=== PATIENT | male | born 1965 | race American Indian/Alaskan Native ===

== ENCOUNTER 2019-12-24 02:52 | Inpatient (IN) | payer BC, MEDICARE ==
[~2019-12-24] VITALS: Ht 185.4 cm; Wt 92.5 kg
[2019-12-24] VITALS (17 sets, daily range): BP systolic 119–175; BP diastolic 50–78
[2019-12-24] MEDS ORDERED: ASPI-1264 PO (03:10)
[2019-12-24] MEDS ORDERED: CALC0.5C2 PO (03:10)
[2019-12-24] MEDS ORDERED: OLME40TA13 PO (03:10)
[2019-12-24] MEDS ORDERED: OMEG1CAP2 PO (03:11)
[2019-12-24] MEDS ORDERED: PANT-47 PO (03:24)
[2019-12-24] MEDS ORDERED: XAL0.005OS OP (03:24)
[2019-12-24] MEDS ORDERED: [UNRECOGNIZED DRUG - CODE] INJ (03:24)
[2019-12-24] MEDS ORDERED: GEMF600T89 PO (03:24)
[2019-12-24] MEDS ORDERED: FAMO-128 PO (03:24)
[2019-12-24] MEDS ORDERED: PRED5TAB PO (03:24)
[2019-12-24] MEDS ORDERED: IRON100V6 IV (03:24)
[2019-12-24] MEDS ORDERED: HYDR-4353 PO (03:24)
[2019-12-24] MEDS ORDERED: MULT-1085 PO (03:24)
[2019-12-24] MEDS ORDERED: EZET10TA6 PO (03:24)
[2019-12-24] MEDS ORDERED: CALC500T11 PO (03:24)
[2019-12-24] MEDS ORDERED: INSU100V9 SQ (03:24)
[2019-12-24] MEDS ORDERED: MYCO360T PO (03:24)
[2019-12-24] MEDS ORDERED: INSU100V11 SQ (03:24)
[2019-12-24] MEDS ORDERED: INDLA60C PO (03:24)
[2019-12-24] MEDS ORDERED: CLOP75TA15 PO (03:24)
[2019-12-24] MEDS ORDERED: piperacillin/tazo 3.375gm/50ml 50 ML IV ONE (03:35)
[2019-12-24] MEDS ORDERED: glucagon, human recombinant 1mg kit SUBCUT PRN (04:30)
[2019-12-24] MEDS ORDERED: HYDROmorphone inj. 0.5 MG/0.5 ML DISP.SYRIN IV PRN (04:30)
[2019-12-24] MEDS ORDERED: dextrose 50%-water 50ml dispensing syringe IV PRN ×2 (04:30)
[2019-12-24] MEDS ORDERED: ondansetron/PF 4mg/2ml inj IV PRN ×2 (04:30→08:40)
[2019-12-24] MEDS ORDERED: MESSAGE TO PHARMACY PO ONE (04:30)
[2019-12-24] MEDS ORDERED: acetaminophen 325mg tablet PO PRN ×2 (04:30)
[2019-12-24] MEDS ORDERED: dextrose ORAL solution 15 GM/59 ML bottle PO PRN ×2 (04:30)
[2019-12-24] MEDS ORDERED: VANCOmycin 1250MG/NS 250ml Bag 250 ML IV ONE (05:05)
[2019-12-24 05:19] LABS: BASOPHILS % (AUTO) 0.5 % (0-1); EOSINOPHILS % (AUTO) 0.5 % (0-6); HEMATOCRIT 23.6 % (42.0-52.0); LYMPHOCYTES % (AUTO) 12.7 % (21-51); MEAN CORPUSCULAR HGB CONC 33.7 g/dL (33.0-36.5); MEAN PLATELET VOLUME 5.9 FL (7.4-10.4); MONOCYTES # (AUTO) 0.6 X10'3 (0-0.9); MONOCYTES % (AUTO) 8.1 % (2-12); NEUTROPHILS % (AUTO) 78.2 % (42-75); PLATELET COUNT 360 X10'3 (140-440); RED BLOOD COUNT 2.74 X10'6 (4.70-6.10); RED CELL DISTRIBUTION WIDTH 13.7 % (11.5-14.5); WHITE BLOOD COUNT 7.7 X10'3 (4.5-11.0)
[2019-12-24 05:31] LABS: PARTIAL THROMBOPLASTIN TIME 31 SECONDS (22-32)
[2019-12-24 05:35] LABS: ALANINE AMINOTRANSFERASE 10 U/L (12-78); ALBUMIN 2.8 G/DL (3.4-5.0); ALBUMIN/GLOBULIN RATIO 0.7 (1.1-1.5); ALKALINE PHOSPHATASE 108 IU/L (46-116); ANION GAP 9 (8-16); ASPARTATE AMINO TRANSFERASE 9 U/L (10-37); BILIRUBIN,TOTAL 0.5 MG/DL (0.1-1.0); BLOOD UREA NITROGEN 38 MG/DL (7-18); BUN/CREATININE RATIO 5.9 (5.4-32.0); CHLORIDE 94 MMOL/L (99-107); GLUCOSE 215 MG/DL (70-104); MAGNESIUM 1.9 MG/DL (1.5-2.4); POTASSIUM 3.3 MMOL/L (3.5-5.1); SODIUM 135 MMOL/L (135-145); TOTAL CARBON DIOXIDE 31.8 MMOL/L (24-32); eGFR 9 ML/MIN
[2019-12-24 05:39] LABS: HEMOGLOBIN A1C 6.4 % (4.5-6.2)
[2019-12-24] MEDS ORDERED: IRON SUCROSE IV SCH (06:00)
[2019-12-24] MEDS ORDERED: HYDROcodone/acetaminophen 10/325mg tab PO PRN (06:00)
[2019-12-24] MEDS ORDERED: [UNRECOGNIZED DRUG - OTHER] INJ SCH (06:00)
--- NOTE | 2019-12-24 07:15 | NUR ---
received report from yenifer valdez
[2019-12-24] MEDS: docusate sod 100mg capsule PO SCH ×2 (08:00→20:00)
[2019-12-24] MEDS: clindamycin-Cleocin 900mg/D5W 50 ML IV SCH ×2 (08:00→16:16)
[2019-12-24] MEDS: calcium carbonate 500mg chew tablet PO SCH ×2 (08:06→16:00)
[2019-12-24] MEDS: calcitriol 0.25mcg capsule PO SCH ×3 (08:08→21:13)
[2019-12-24] MEDS: ezetimibe 10mg tablet PO SCH (08:08)
[2019-12-24] MEDS: pantoprazole 40mg Tablet.DR PO SCH (08:09)
[2019-12-24] MEDS: folic acid/vitamin B complex w/vitamin C 0.8mg tablet PO SCH (08:09)
[2019-12-24] MEDS: gemfibrozil 600mg tablet PO SCH ×2 (08:09→21:14)
[2019-12-24] MEDS: predniSONE 5mg tablet PO SCH (08:10)
[2019-12-24] MEDS: losartan 50mg tablet PO SCH (08:10)
[2019-12-24] MEDS: famotidine 20mg tablet PO SCH (08:10)
[2019-12-24] MEDS ORDERED: ringers solution, lacted 1,000 ML IV SCH (08:39)
[2019-12-24] MEDS ORDERED: proCHLORperazine 10 MG/2 ml inj IV PRN (08:40)
[2019-12-24] MEDS ORDERED: morphine 2 MG/ML inj. syringe IV PRN (08:40)
[2019-12-24] MEDS ORDERED: morphine 4 MG/ML inj SYRINge IV PRN (08:40)
[2019-12-24] MEDS ORDERED: meperidine/PF 25mg/ml syringe IV PRN ×3 (08:40)
[2019-12-24] MEDS: latanoprost 0.005% 2.5ml ophthalmic drops EACHEYE SCH ×2 (08:56→21:14)
[2019-12-24] MEDS: mycophenolate sod SR tablet 180 MG TABLET.DR PO SCH ×2 (08:57→21:14)
[2019-12-24] MEDS: propranolol LA 60 MG cap.SA.24H PO SCH (09:01)
[2019-12-24] MEDS ORDERED: desflurane 240ml liquid inh. IH ONE (09:27)
[2019-12-24] MEDS ORDERED: BUPIVAcaine/PF 2.5 mg/ml (0.25%) 30ml vial ONE (09:33)
[2019-12-24] MEDS ORDERED: fentaNYL/PF 50MCG/1 ML 2ML syringe ONE (09:35)
[2019-12-24] MEDS ORDERED: midazolam 2 mg/2 ml injection ONE (09:35)
[2019-12-24] MEDS ORDERED: propofol inj 20 ML IV ONE (09:37)
[2019-12-24] MEDS ORDERED: LIDOcaine 2% (20mg/ml) 5ml vial ONE (09:37)
--- NOTE | 2019-12-24 09:42 | NUR ---
between the hours of 0703 and 0900 there were no iv pumps available to use for pt iv abx, therefore pt did not receive his 0800 abx
--- NOTE | 2019-12-24 10:24 | NUR ---
ARRIVED IN PACU VIA BED FROM OR WITH O2 ON AND DR FERMIN IN ATTENDANCE. REPORT RECEIVED. PT SLEEPY BUT AROUSABLE. VS STABLE
[2019-12-24] MEDS ORDERED: insulin regular, human U-100 3ml vial - multi-dose SQ ONE (10:35)
--- NOTE | 2019-12-24 10:54 | NUR ---
SLEEPING. VS STABLE
--- NOTE | 2019-12-24 11:01 | NUR ---
RECEIVED REPORT FROM PIYUSH HOWARD
--- NOTE | 2019-12-24 11:14 | NUR ---
TO FLOOR WITH ASSISTANCE OF RN FROM [facility]. VS STABLE ON ARRIVAL. NO C/O PAIN
--- NOTE | 2019-12-24 11:45 | NUR ---
pt bg is 219 in or, or nurse gave pt 7 units of reg insulin for his bg, continue to monitor
--- NOTE | 2019-12-24 13:00 | NUR ---
AWARE OF PT K LEVEL, NO NEW ORDERS AT THIS TIME
[2019-12-24] MEDS: insulin Lispro (HumaLOG) vial - multi-dose SQ SCH ×2 (13:16→19:31)
[2019-12-24] MEDS: piperacillin/tazo 3.375gm/50ml 50 ML IV SCH (14:50)
--- NOTE | 2019-12-24 14:55 | NUR ---
per kassidy sandoval, she knows pt is diabetic but does not want pt to be on a diabetic diet only a renal diet regardless of blood sugar, if applies please treat pt blood glucose
--- NOTE | 2019-12-24 18:18 | NUR ---
gave report to yenifer yo
[2019-12-24] MEDS: OMEGA-3/DHA/EPA/FISH OIL 1 EACH CAPSULE.DR PO SCH (21:13)
[2019-12-24] MEDS: insulin glargine (Lantus) pen - multi-dose SQ SCH (21:22)
--- NOTE | 2019-12-24 21:28 | NUR ---
HOLDING TUMS 0000 DOSE IN PT SPECIFIC BIN.
[2019-12-25] MEDS: clindamycin-Cleocin 900mg/D5W 50 ML IV SCH ×2 (00:18→07:49)
[2019-12-25] MEDS: calcium carbonate 500mg chew tablet PO SCH ×4 (00:18→23:13)
[2019-12-25 02:00] VITALS: BP 141/60
[2019-12-25] MEDS: VANCOMYCIN LEVEL IV SCH (02:12)
[2019-12-25] MEDS: piperacillin/tazo 3.375gm/50ml 50 ML IV SCH ×2 (06:07→15:20)
[2019-12-25 06:17] LABS: BASOPHILS % (AUTO) 0.6 % (0-1); EOSINOPHILS # (AUTO) 0.1 X10'3 (0-0.9); EOSINOPHILS % (AUTO) 1.2 % (0-6); HEMATOCRIT 22.7 % (42.0-52.0); HEMOGLOBIN 7.7 g/dl (14.0-17.9); LYMPHOCYTES # (AUTO) 1.2 X10'3 (1.1-4.8); LYMPHOCYTES % (AUTO) 23.1 % (21-51); MEAN CORPUSCULAR HEMOGLOBIN 29.1 PG (27.0-31.0); MEAN CORPUSCULAR HGB CONC 33.8 g/dL (33.0-36.5); MEAN CORPUSCULAR VOLUME 86.1 FL (78-98); MONOCYTES # (AUTO) 0.7 X10'3 (0-0.9); NEUTROPHILS # (AUTO) 3.1 X10'3 (1.8-7.7); NEUTROPHILS % (AUTO) 62.1 % (42-75); PLATELET COUNT 336 X10'3 (140-440); RED BLOOD COUNT 2.64 X10'6 (4.70-6.10); RED CELL DISTRIBUTION WIDTH 13.6 % (11.5-14.5); WHITE BLOOD COUNT 5.1 X10'3 (4.5-11.0)
--- NOTE | 2019-12-25 06:28 | NUR ---
Received report from Mariela PICKETT
[2019-12-25 06:32] LABS: PARTIAL THROMBOPLASTIN TIME 26 SECONDS (22-32)
--- NOTE | 2019-12-25 06:39 | NUR ---
REPORT GIVEN TO PIYUSH DIAZ.
[2019-12-25 06:45] LABS: ALANINE AMINOTRANSFERASE 10 U/L (12-78); ALBUMIN 2.5 G/DL (3.4-5.0); ALBUMIN/GLOBULIN RATIO 0.6 (1.1-1.5); ALKALINE PHOSPHATASE 92 IU/L (46-116); ANION GAP 13 (8-16); ASPARTATE AMINO TRANSFERASE 7 U/L (10-37); BILIRUBIN,TOTAL 0.5 MG/DL (0.1-1.0); BLOOD UREA NITROGEN 49 MG/DL (7-18); BUN/CREATININE RATIO 6.8 (5.4-32.0); CALCIUM 8.7 MG/DL (8.5-10.1); CHLORIDE 96 MMOL/L (99-107); GLUCOSE 120 MG/DL (70-104); MAGNESIUM 1.9 MG/DL (1.5-2.4); PHOSPHORUS 4.8 MG/DL (2.3-4.5); POTASSIUM 3.2 MMOL/L (3.5-5.1); SODIUM 137 MMOL/L (135-145); TOTAL CARBON DIOXIDE 28.2 MMOL/L (24-32); TOTAL PROTEIN 6.5 G/DL (6.4-8.2); eGFR 8 ML/MIN
[2019-12-25 06:49] LABS: VANCOMYCIN,TROUGH 23.4 UG/ML (6.0-14.0)
[2019-12-25 07:14] VITALS: BP 152/66
[2019-12-25] MEDS: calcitriol 0.25mcg capsule PO SCH ×3 (07:49→22:04)
[2019-12-25] MEDS: famotidine 20mg tablet PO SCH (07:49)
[2019-12-25] MEDS: pantoprazole 40mg Tablet.DR PO SCH (07:49)
[2019-12-25] MEDS: docusate sod 100mg capsule PO SCH ×2 (07:49→20:00)
[2019-12-25] MEDS: ezetimibe 10mg tablet PO SCH (07:49)
[2019-12-25] MEDS: latanoprost 0.005% 2.5ml ophthalmic drops EACHEYE SCH ×2 (07:50→22:04)
[2019-12-25] MEDS: gemfibrozil 600mg tablet PO SCH ×2 (07:50→22:04)
[2019-12-25] MEDS: folic acid/vitamin B complex w/vitamin C 0.8mg tablet PO SCH (07:50)
[2019-12-25] MEDS: losartan 50mg tablet PO SCH (07:50)
[2019-12-25] MEDS: predniSONE 5mg tablet PO SCH (07:50)
[2019-12-25] MEDS: propranolol LA 60 MG cap.SA.24H PO SCH (07:50)
[2019-12-25] MEDS: mycophenolate sod SR tablet 180 MG TABLET.DR PO SCH ×2 (07:50→22:04)
[2019-12-25] MEDS: heparin, porcine 5000 units/ml vial SQ SCH ×2 (07:51→22:05)
[2019-12-25] MEDS ORDERED: vancomycin inj 500 MG in normal saline 100ml IV soln 100 ML IV PRN (08:00)
[2019-12-25] MEDS ORDERED: vancomycin/NS 1 GM ADD-VANTAGE 250 ML IV PRN (08:00)
[2019-12-25] MEDS ORDERED: heparin 1,000unit/ml 10ml vial 10 ML IV ONE (08:19)
[2019-12-25] MEDS ORDERED: heparin 1,000 units/ml 10ml inj IV ONE (08:20)
[2019-12-25] MEDS ORDERED: albumin (human) 25% 100ml IV 100 ML IV PRN (08:20)
[2019-12-25] MEDS ORDERED: epoetin 20,000 units/ml inj IV ONE (08:20)
[2019-12-25] MEDS ORDERED: heparin 1,000 units/ml 10ml inj HE ONE ×2 (08:25)
[2019-12-25 10:00] VITALS: BP 133/60
[2019-12-25] MEDS: insulin Lispro (HumaLOG) vial - multi-dose SQ SCH ×2 (10:12→19:57)
[2019-12-25 18:00] VITALS: BP 159/73
[2019-12-25 22:00] VITALS: BP 132/63
[2019-12-25] MEDS: insulin glargine (Lantus) pen - multi-dose SQ SCH (22:02)
[2019-12-25] MEDS: OMEGA-3/DHA/EPA/FISH OIL 1 EACH CAPSULE.DR PO SCH (22:04)
[2019-12-26] MEDS: VANCOMYCIN LEVEL IV SCH (03:00)
[2019-12-26] MEDS: piperacillin/tazo 3.375gm/50ml 50 ML IV SCH (03:58)
[2019-12-26] MEDS ORDERED: lactulose 20gm/30ml cup PO PRN (04:30)
--- NOTE | 2019-12-26 06:25 | NUR ---
Problems reprioritized. Patient report given, questions answered & plan of care reviewed with PIYUSH STANLEY.
[2019-12-26 06:39] VITALS: BP 139/68
[2019-12-26 06:44] LABS: BASOPHILS % (AUTO) 1.2 % (0-1); EOSINOPHILS # (AUTO) 0.1 X10'3 (0-0.9); EOSINOPHILS % (AUTO) 3.6 % (0-6); HEMATOCRIT 25.1 % (42.0-52.0); HEMOGLOBIN 8.4 g/dl (14.0-17.9); LYMPHOCYTES % (AUTO) 28.8 % (21-51); MEAN CORPUSCULAR HEMOGLOBIN 28.9 PG (27.0-31.0); MEAN CORPUSCULAR HGB CONC 33.5 g/dL (33.0-36.5); MEAN CORPUSCULAR VOLUME 86.1 FL (78-98); MONOCYTES # (AUTO) 0.5 X10'3 (0-0.9); MONOCYTES % (AUTO) 15.9 % (2-12); NEUTROPHILS # (AUTO) 1.7 X10'3 (1.8-7.7); NEUTROPHILS % (AUTO) 50.5 % (42-75); PLATELET COUNT 365 X10'3 (140-440); RED BLOOD COUNT 2.92 X10'6 (4.70-6.10); RED CELL DISTRIBUTION WIDTH 13.8 % (11.5-14.5); WHITE BLOOD COUNT 3.4 X10'3 (4.5-11.0)
[2019-12-26 06:54] LABS: PARTIAL THROMBOPLASTIN TIME 30 SECONDS (22-32)
[2019-12-26 06:59] LABS: ALANINE AMINOTRANSFERASE 11 U/L (12-78); ALBUMIN 2.5 G/DL (3.4-5.0); ALBUMIN/GLOBULIN RATIO 0.6 (1.1-1.5); ALKALINE PHOSPHATASE 89 IU/L (46-116); ANION GAP 11 (8-16); ASPARTATE AMINO TRANSFERASE 8 U/L (10-37); BILIRUBIN,TOTAL 0.4 MG/DL (0.1-1.0); BLOOD UREA NITROGEN 27 MG/DL (7-18); BUN/CREATININE RATIO 5.4 (5.4-32.0); CALCIUM 8.8 MG/DL (8.5-10.1); CHLORIDE 101 MMOL/L (99-107); CREATININE 4.97 MG/DL (0.60-1.10); GLUCOSE 197 MG/DL (70-104); MAGNESIUM 1.9 MG/DL (1.5-2.4); PHOSPHORUS 3.8 MG/DL (2.3-4.5); POTASSIUM 3.3 MMOL/L (3.5-5.1); SODIUM 141 MMOL/L (135-145); TOTAL CARBON DIOXIDE 29.2 MMOL/L (24-32); TOTAL PROTEIN 6.6 G/DL (6.4-8.2); VANCOMYCIN,RANDOM 16.3 UG/ML; eGFR 12 ML/MIN
[2019-12-26] MEDS: docusate sod 100mg capsule PO SCH (08:00)
[2019-12-26] MEDS: calcitriol 0.25mcg capsule PO SCH (08:02)
[2019-12-26] MEDS: ezetimibe 10mg tablet PO SCH (08:02)
[2019-12-26] MEDS: propranolol LA 60 MG cap.SA.24H PO SCH (08:02)
[2019-12-26] MEDS: losartan 50mg tablet PO SCH (08:02)
[2019-12-26] MEDS: folic acid/vitamin B complex w/vitamin C 0.8mg tablet PO SCH (08:02)
[2019-12-26] MEDS: gemfibrozil 600mg tablet PO SCH (08:02)
[2019-12-26] MEDS: famotidine 20mg tablet PO SCH (08:03)
[2019-12-26] MEDS: predniSONE 5mg tablet PO SCH (08:03)
[2019-12-26] MEDS: latanoprost 0.005% 2.5ml ophthalmic drops EACHEYE SCH (08:03)
[2019-12-26] MEDS: pantoprazole 40mg Tablet.DR PO SCH (08:03)
[2019-12-26] MEDS: mycophenolate sod SR tablet 180 MG TABLET.DR PO SCH (08:03)
[2019-12-26] MEDS: calcium carbonate 500mg chew tablet PO SCH (08:04)
[2019-12-26] MEDS: heparin, porcine 5000 units/ml vial SQ SCH (08:04)
--- NOTE | 2019-12-26 08:16 | NUR ---
Patient in room [facility] 4017. I have received report from Anita PICKETT and had the opportunity to ask questions and assume patient care.
[2019-12-26] MEDS ORDERED: LEVO500T2 PO (09:40)
[2019-12-26] MEDS ORDERED: CLIN150C2 PO (09:48)
--- NOTE | 2019-12-26 09:51 | NUR ---
DM Consult: Pt A1C less than 7 and not appropriate for DM ed at this time. Addendum: 12/26/19 at [address] Amended: Links added.
[2019-12-26] MEDS: insulin Lispro (HumaLOG) vial - multi-dose SQ SCH (10:03)
[2019-12-26 10:23] VITALS: BP 157/74
--- NOTE | 2019-12-26 17:20 | NUR ---
Problems reprioritized. Patient report given, questions answered & plan of care reviewed with SN. Navjot Chaney RN Addendum: 12/26/19 at 1723 by Kim PETERSON RN Student documentation: (Please replace above note with this note:) I have reviewed and agree with all interventions, assessments performed and documented by SN. Navjot Chaney RN.
[2020-01-03] MEDS ORDERED: levoFLOXACIN 500mg tablet PO SCH (08:00)
== END 2019-12-26 12:20 | disposition home or self-care (01) | DRG 255 ==
LOC: ER 02:52 → ED HOLD 04:28 → ORTHO 4S 08:13
PROVIDERS: ADMIT Internal Medicine Critical Care Medicine; ATTEND Internal Medicine Critical Care Medicine
PROC: 0X6S0Z0 Detachment at Right Ring Finger, Complete, Open Approach (ICD-10-PCS; principal; 2019-12-24 09:27)
PROC: 5A1D70Z Performance of Urinary Filtration, Intermittent, Less than 6 Hours Per Day (ICD-10-PCS; 2019-12-25)
DX: E11.52 Type 2 diabetes mellitus with diabetic peripheral angiopathy with gangrene (principal); A48.0 Gas gangrene; N18.6 End stage renal disease; I12.0 Hypertensive chronic kidney disease with stage 5 chronic kidney disease or end stage renal disease; M86.8X7 Other osteomyelitis, ankle and foot; Z94.0 Kidney transplant status; E11.22 Type 2 diabetes mellitus with diabetic chronic kidney disease; I25.10 Atherosclerotic heart disease of native coronary artery without angina pectoris; L08.9 Local infection of the skin and subcutaneous tissue, unspecified; Z79.4 Long term (current) use of insulin; Z89.431 Acquired absence of right foot; Z89.512 Acquired absence of left leg below knee; Z99.2 Dependence on renal dialysis
CPT/HCPCS: 36415; 80053; 80202; 82948; 83036; 83605; 83735; 84100; 84145; 85025; 85610; 85730; 86885; 86900; 86901; 87040; 87081; 97116; 97161; 97530; 97535; A4618; A6222; A6449; A7000; G0378; J1644; J1815; J2001; J2250; J2543; J2704; J3010; J3370; J3490; J7030; J7512; J7518; Q4081